=== PATIENT | male | born 1940 | race African-American/Black ===

== ENCOUNTER → 2020-06-29 | Day surgery (SDC) | payer MEDICARE ==
[2020-06-27 15:43] LABS: BASOPHILS % 0.3 % (0.0-1.0); EOSINOPHILS # (AUTO) 0.1 (0.0-0.4); HEMATOCRIT 34.2 % (38.2-49.6); HEMOGLOBIN 11.7 g/dL (14.0-18.0); LYMPHOCYTES # (AUTO) 1.4 (1.0-3.2); LYMPHOCYTES % 17.3 % (18.0-39.1); MEAN CORPUSCULAR HGB CONC 34.2 g/dL (31-35); MEAN CORPUSCULAR VOLUME 93.4 fL (81-99); MONOCYTES # (AUTO) 0.8 (0.2-0.8); MONOCYTES % 10.5 % (4.4-11.3); NEUTROPHILS # (AUTO) 5.6 (2.1-6.9); NEUTROPHILS % 70.6 % (38.7-80.0); PLATELET COUNT 280 x10e3/uL (140-360); RED BLOOD COUNT 3.66 x10e6/uL (4.3-5.7); RED CELL DISTRIBUTION WIDTH 13.5 % (11.7-14.4)
[2020-06-27 16:03] LABS: ANION GAP 14.2 mmol/L (8-16); CALCIUM 11.1 mg/dL (8.4-10.2); CREATININE, SERUM 1.86 mg/dL (0.72-1.25); POTASSIUM 3.2 mmol/L (3.5-5.1)
[~2020-06-29] MED LIST: ACETAMINOPHEN/CODEINE 300MG - 30MG TAB ONE; ALLOPURINOL300 MG PO; AMLODIPINE BESY10 MG PO; B&O 60MG R/S 60 MG SUPP PR ONE; CEFAZOLIN SOD 1 GM/NS 50ML 50 ML IV ONE; CHLORTHALIDONE25 MG PO; DEXAMETHASONE SOD PHOS INJ 4 MG/ML VIAL ONE; FENTANYL CITRATE/PF 100MCG/2 ML INJ ONE; FLOMAX0.4 MG PO; GLYCOPYRROLATE INJ 0.2 MG/ML VIAL ONE; INDIGOTINDISULFONATE SODIUM 8 MG/ML AMP IJ ONE; IOPAMIDOL 300MG/ML 50ML INFUS..BTL IV ONE; LIDOCAINE HCL 2% LOCAL INJ 5 ML SDV VIAL INJ ONE; LYRICA150 MG PO; MIDAZOLAM HCL 2 MG/2 ML VIAL ONE; MORPHINE SULFATE INJ 4 MG/ML INJ 1ML ONE; NEOSTIGMINE 1 MG/ML 10ML VIAL ONE; ONDANSETRON HCL INJ 2MG/ML 2ML 2 MG/ML VIAL ONE; PRAVACHOL40 MG PO; PROPOFOL IV EMULSION 10 MG/ML 20 ML VIAL ONE; ROCURONIUM BROMIDE 10 MG/ML 5ML VIAL IV ONE; SEVOFLURANE INHAL SOLN 250 ML PEN BTL ONE
[2020-06-29 16:20] VITALS: BP 139/92
== END | disposition home or self-care (01) ==
LOC: OR 11:22 → EDBD 14:00
PROVIDERS: ATTEND Urology
DX: C67.2 Malignant neoplasm of lateral wall of bladder (principal); N35.912 Unspecified bulbous urethral stricture, male; N20.0 Calculus of kidney; I10 Essential (primary) hypertension; Z01.810 Encounter for preprocedural cardiovascular examination; Z01.812 Encounter for preprocedural laboratory examination; Z01.818 Encounter for other preprocedural examination; Z20.822 Contact with and (suspected) exposure to COVID-19
CPT/HCPCS: 36415; 52235; 71046; 74420; 80048; 85025; 88307; 93005; C1758 ×2; J0690; J1100; J2001; J2250; J2270; J2405; J2704; J2710; J3010; Q9967; U0002; 88305

== ENCOUNTER 2020-07-06 11:49 | Inpatient (IN) | payer MEDICARE ==
[~2020-07-06] VITALS: Ht 175.3 cm; Wt 82.6 kg
[~2020-07-06 11:49] MED LIST changes: -ACETAMINOPHEN/CODEINE 300MG - 30MG TAB ONE; -B&O 60MG R/S 60 MG SUPP PR ONE; -CEFAZOLIN SOD 1 GM/NS 50ML 50 ML IV ONE; -DEXAMETHASONE SOD PHOS INJ 4 MG/ML VIAL ONE; -FENTANYL CITRATE/PF 100MCG/2 ML INJ ONE; -GLYCOPYRROLATE INJ 0.2 MG/ML VIAL ONE; -INDIGOTINDISULFONATE SODIUM 8 MG/ML AMP IJ ONE; -IOPAMIDOL 300MG/ML 50ML INFUS..BTL IV ONE; -LIDOCAINE HCL 2% LOCAL INJ 5 ML SDV VIAL INJ ONE; -MIDAZOLAM HCL 2 MG/2 ML VIAL ONE; -MORPHINE SULFATE INJ 4 MG/ML INJ 1ML ONE; -NEOSTIGMINE 1 MG/ML 10ML VIAL ONE; -ONDANSETRON HCL INJ 2MG/ML 2ML 2 MG/ML VIAL ONE; -PROPOFOL IV EMULSION 10 MG/ML 20 ML VIAL ONE; -ROCURONIUM BROMIDE 10 MG/ML 5ML VIAL IV ONE; -SEVOFLURANE INHAL SOLN 250 ML PEN BTL ONE
[2020-07-06 13:56] LABS: BASOPHILS % 0.2 % (0.0-1.0); HEMATOCRIT 28.2 % (38.2-49.6); HEMOGLOBIN 10.2 g/dL (14.0-18.0); LYMPHOCYTES # (AUTO) 0.9 (1.0-3.2); MEAN CORPUSCULAR HEMOGLOBIN 31.9 pg (28-32); MEAN CORPUSCULAR HGB CONC 36.2 g/dL (31-35); MEAN CORPUSCULAR VOLUME 88.1 fL (81-99); MONOCYTES # (AUTO) 0.8 (0.2-0.8); MONOCYTES % 10.3 % (4.4-11.3); NEUTROPHILS # (AUTO) 6.4 (2.1-6.9); NEUTROPHILS % 77.8 % (38.7-80.0); PLATELET COUNT 354 x10e3/uL (140-360)
[2020-07-06 14:09] LABS: INR 0.97; PROTHROMBIN TIME 13.5 seconds (11.9-14.5)
[2020-07-06 14:10] LABS: PARTIAL THROMBOPLASTIN TIME 30.3 seconds (23.8-35.5)
[2020-07-06 14:16] LABS: ALBUMIN 4.2 g/dL (3.5-5.0); ALBUMIN/GLOBULIN RATIO 1.4 (0.8-2.0); ANION GAP 17.7 mmol/L (8-16); CALCIUM 10.6 mg/dL (8.4-10.2); CREATININE, SERUM 1.48 mg/dL (0.72-1.25)
[2020-07-06 14:20] LABS: POTASSIUM 2.7 mmol/L (3.5-5.1)
[2020-07-06] MEDS ORDERED: POTASSIUM CHLORIDE 20 MEQ TAB CR PO STA (16:52)
[2020-07-06] MEDS ORDERED: MORPHINE SULFATE INJ 2 MG/ML SYR IV PRN (17:00)
[2020-07-06] MEDS ORDERED: CEFTRIAXONE SOD 1 GM/50 ML BAG IV SCH (17:00)
[2020-07-06] MEDS: CEFTRIAXONE SOD 1 GM in SODIUM CHLORIDE 0.9% 50ML 50 ML IV SCH (17:15)
[2020-07-06] MEDS: SODIUM CHLORIDE 0.9% 1000ML 1,000 ML IV SCH (17:15)
[2020-07-06] MEDS: POTASSIUM CHLORIDE 10MEQ/100ML 100 ML IV SCH ×2 (17:15→19:25)
[2020-07-06] MEDS ORDERED: MORPHINE SULFATE INJ 4 MG/ML INJ 1ML IV PRN (17:15)
[2020-07-06] MEDS: ONDANSETRON HCL INJ 2MG/ML 2ML 2 MG/ML VIAL IV PRN (17:58)
[2020-07-06] MEDS ORDERED: HYDRALAZINE HCL 20 MG/ML VIAL IV PRN (18:15)
[2020-07-06 19:00] VITALS: BP 115/87
[2020-07-06 20:37] VITALS: BP 119/75
[2020-07-06] MEDS: MORPHINE SULFATE INJ 2 MG/ML SYR IV PRN (20:37)
[2020-07-06] MEDS: SIMVASTATIN 40 MG TAB PO SCH (21:00)
[2020-07-06] MEDS: MELATONIN 5 MG TABLET PO SCH (21:00)
[2020-07-06] MEDS ORDERED: B&O 60MG R/S 60 MG SUPP PR STA (21:20)
[2020-07-07] VITALS (8 sets, daily range): BP systolic 101–122; BP diastolic 63–87
[2020-07-07] MEDS: MORPHINE SULFATE INJ 2 MG/ML SYR IV PRN ×3 (04:57→16:15)
[2020-07-07] MEDS: CEFTRIAXONE SOD 1 GM in SODIUM CHLORIDE 0.9% 50ML 50 ML IV SCH ×2 (05:19→21:00)
[2020-07-07] MEDS: POTASSIUM CHLORIDE 10MEQ/100ML 100 ML IV SCH (06:01)
[2020-07-07 06:02] LABS: BASOPHILS % 0.4 % (0.0-1.0); EOSINOPHILS # (AUTO) 0.1 (0.0-0.4); EOSINOPHILS % 1.3 % (0.0-6.0); HEMATOCRIT 24.2 % (38.2-49.6); HEMOGLOBIN 8.6 g/dL (14.0-18.0); LYMPHOCYTES # (AUTO) 1.1 (1.0-3.2); LYMPHOCYTES % 19.8 % (18.0-39.1); MEAN CORPUSCULAR HEMOGLOBIN 31.5 pg (28-32); MEAN CORPUSCULAR HGB CONC 35.5 g/dL (31-35); MEAN CORPUSCULAR VOLUME 88.6 fL (81-99); MONOCYTES # (AUTO) 0.8 (0.2-0.8); MONOCYTES % 14.3 % (4.4-11.3); NEUTROPHILS # (AUTO) 3.6 (2.1-6.9); NEUTROPHILS % 63.7 % (38.7-80.0); PLATELET COUNT 321 x10e3/uL (140-360); RED BLOOD COUNT 2.73 x10e6/uL (4.3-5.7); RED CELL DISTRIBUTION WIDTH 13.1 % (11.7-14.4)
[2020-07-07] MEDS: SODIUM CHLORIDE 0.9% 1000ML 1,000 ML IV SCH (06:20)
[2020-07-07 06:26] LABS: ALANINE AMINOTRANSFERASE 19 IU/L (0-55); ALBUMIN 3.3 g/dL (3.5-5.0); ALBUMIN/GLOBULIN RATIO 1.3 (0.8-2.0); ALKALINE PHOSPHATASE 58 IU/L (40-150); ANION GAP 14.1 mmol/L (8-16); BLOOD UREA NITROGEN 19 mg/dL (7-26); BUN/CREATININE RATIO 16 (6-25); CALCIUM 9.2 mg/dL (8.4-10.2); CARBON DIOXIDE 23 mmol/L (22-29); CHLORIDE 92 mmol/L (98-107); CREATININE, SERUM 1.18 mg/dL (0.72-1.25); EST GLOMERULAR FILTRATION RATE > 60 ML/MIN (60-); GLUCOSE 90 mg/dL (74-118); POTASSIUM 3.1 mmol/L (3.5-5.1); SODIUM 126 mmol/L (136-145)
[2020-07-07] MEDS ORDERED: CHLORTHALIDONE 25 MG TAB PO SCH (09:00)
[2020-07-07] MEDS: AMLODIPINE BESYLATE 10 MG TAB PO SCH (09:09)
[2020-07-07] MEDS: ALLOPURINOL 300 MG TAB PO SCH (09:09)
[2020-07-07] MEDS: PREGABALIN 75 MG CAP PO SCH (09:10)
[2020-07-07] MEDS: FAMOTIDINE 20 MG TAB PO SCH ×2 (09:10→16:15)
[2020-07-07] MEDS: TAMSULOSIN HCL 0.4 MG CAP PO SCH (09:10)
[2020-07-07] MEDS ORDERED: B&O 60MG R/S 60 MG SUPP PR ONE (09:30)
[2020-07-07] MEDS ORDERED: POTASSIUM CHLORIDE 10MEQ EA PO ONE (10:30)
[2020-07-07] MEDS ORDERED: POTASSIUM CHLORIDE 20MEQ/100ML 200 ML IV ONE (12:55)
[2020-07-07 17:45] LABS: ANION GAP 16.6 mmol/L (8-16); BLOOD UREA NITROGEN 18 mg/dL (7-26); BUN/CREATININE RATIO 15 (6-25); CALCIUM 9.1 mg/dL (8.4-10.2); CARBON DIOXIDE 21 mmol/L (22-29); CHLORIDE 100 mmol/L (98-107); EST GLOMERULAR FILTRATION RATE > 60 ML/MIN (60-); GLUCOSE 81 mg/dL (74-118); POTASSIUM 3.6 mmol/L (3.5-5.1); SODIUM 134 mmol/L (136-145)
[2020-07-07] MEDS ORDERED: DEXTROSE 5% 1,000 ML IV SCH (18:30)
[2020-07-07] MEDS: SIMVASTATIN 40 MG TAB PO SCH (21:00)
[2020-07-07] MEDS: MELATONIN 5 MG TABLET PO SCH (21:00)
[2020-07-08] VITALS (8 sets, daily range): BP systolic 104–122; BP diastolic 65–78
[2020-07-08 00:08] LABS: BLOOD UREA NITROGEN 17 mg/dL (7-26); BUN/CREATININE RATIO 13 (6-25); CALCIUM 9.1 mg/dL (8.4-10.2); CARBON DIOXIDE 18 mmol/L (22-29); CHLORIDE 104 mmol/L (98-107); CREATININE, SERUM 1.28 mg/dL (0.72-1.25); EST GLOMERULAR FILTRATION RATE > 60 ML/MIN (60-); GLUCOSE 73 mg/dL (74-118); SODIUM 135 mmol/L (136-145)
[2020-07-08] MEDS: B&O 60MG R/S 60 MG SUPP PR PRN ×3 (02:54→20:43)
[2020-07-08 05:55] LABS: BASOPHILS % 0.6 % (0.0-1.0); EOSINOPHILS # (AUTO) 0.1 (0.0-0.4); EOSINOPHILS % 1.9 % (0.0-6.0); HEMATOCRIT 25.4 % (38.2-49.6); HEMOGLOBIN 8.7 g/dL (14.0-18.0); LYMPHOCYTES % 19.9 % (18.0-39.1); MEAN CORPUSCULAR HEMOGLOBIN 31.9 pg (28-32); MEAN CORPUSCULAR HGB CONC 34.3 g/dL (31-35); MONOCYTES # (AUTO) 0.6 (0.2-0.8); MONOCYTES % 11.4 % (4.4-11.3); NEUTROPHILS # (AUTO) 3.4 (2.1-6.9); NEUTROPHILS % 65.6 % (38.7-80.0); PLATELET COUNT 316 x10e3/uL (140-360); RED BLOOD COUNT 2.73 x10e6/uL (4.3-5.7); RED CELL DISTRIBUTION WIDTH 13.6 % (11.7-14.4)
[2020-07-08 06:19] LABS: ANION GAP 13.9 mmol/L (8-16); BLOOD UREA NITROGEN 18 mg/dL (7-26); BUN/CREATININE RATIO 14 (6-25); CALCIUM 8.9 mg/dL (8.4-10.2); CARBON DIOXIDE 20 mmol/L (22-29); CHLORIDE 104 mmol/L (98-107); CREATININE, SERUM 1.27 mg/dL (0.72-1.25); EST GLOMERULAR FILTRATION RATE > 60 ML/MIN (60-); GLUCOSE 66 mg/dL (74-118); MAGNESIUM 1.4 MG/DL (1.3-2.1); POTASSIUM 3.9 mmol/L (3.5-5.1); SODIUM 134 mmol/L (136-145)
[2020-07-08] MEDS: CEFTRIAXONE SOD 1 GM in SODIUM CHLORIDE 0.9% 50ML 50 ML IV SCH ×2 (06:55→17:08)
[2020-07-08] MEDS: PREGABALIN 75 MG CAP PO SCH (08:11)
[2020-07-08] MEDS: TAMSULOSIN HCL 0.4 MG CAP PO SCH (08:11)
[2020-07-08] MEDS: FAMOTIDINE 20 MG TAB PO SCH ×2 (08:11→16:30)
[2020-07-08] MEDS: AMLODIPINE BESYLATE 10 MG TAB PO SCH (08:12)
[2020-07-08] MEDS: ALLOPURINOL 300 MG TAB PO SCH (08:13)
[2020-07-08] MEDS: ONDANSETRON HCL INJ 2MG/ML 2ML 2 MG/ML VIAL IV PRN ×2 (08:21→16:00)
[2020-07-08] MEDS: MORPHINE SULFATE INJ 2 MG/ML SYR IV PRN ×2 (08:22→16:00)
[2020-07-08] MEDS: TRAMADOL HCL 50 MG TAB PO PRN ×2 (09:56→17:09)
[2020-07-08] MEDS: MELATONIN 5 MG TABLET PO SCH (22:00)
[2020-07-08] MEDS: SIMVASTATIN 40 MG TAB PO SCH (22:00)
[2020-07-09] VITALS (8 sets, daily range): BP systolic 100–111; BP diastolic 68–91
[2020-07-09] MEDS: MORPHINE SULFATE INJ 2 MG/ML SYR IV PRN ×4 (02:43→20:25)
[2020-07-09] MEDS: ONDANSETRON HCL INJ 2MG/ML 2ML 2 MG/ML VIAL IV PRN (02:43)
[2020-07-09] MEDS: CEFTRIAXONE SOD 1 GM in SODIUM CHLORIDE 0.9% 50ML 50 ML IV SCH ×2 (05:26→17:21)
[2020-07-09 05:46] LABS: BASOPHILS % 0.6 % (0.0-1.0); EOSINOPHILS # (AUTO) 0.1 (0.0-0.4); EOSINOPHILS % 2.1 % (0.0-6.0); HEMATOCRIT 25.2 % (38.2-49.6); HEMOGLOBIN 8.8 g/dL (14.0-18.0); LYMPHOCYTES # (AUTO) 1.2 (1.0-3.2); LYMPHOCYTES % 24.3 % (18.0-39.1); MEAN CORPUSCULAR HEMOGLOBIN 32.5 pg (28-32); MEAN CORPUSCULAR HGB CONC 34.9 g/dL (31-35); MONOCYTES # (AUTO) 0.6 (0.2-0.8); MONOCYTES % 13.1 % (4.4-11.3); NEUTROPHILS # (AUTO) 2.9 (2.1-6.9); NEUTROPHILS % 59.5 % (38.7-80.0); PLATELET COUNT 304 x10e3/uL (140-360); RED BLOOD COUNT 2.71 x10e6/uL (4.3-5.7); RED CELL DISTRIBUTION WIDTH 13.4 % (11.7-14.4)
[2020-07-09 06:05] LABS: ALBUMIN 3.4 g/dL (3.5-5.0); ALBUMIN/GLOBULIN RATIO 1.3 (0.8-2.0); ANION GAP 12.6 mmol/L (8-16); CALCIUM 8.8 mg/dL (8.4-10.2); CREATININE, SERUM 1.42 mg/dL (0.72-1.25); MAGNESIUM 1.5 MG/DL (1.3-2.1); POTASSIUM 3.6 mmol/L (3.5-5.1)
[2020-07-09] MEDS: B&O 60MG R/S 60 MG SUPP PR PRN ×2 (06:18→16:00)
[2020-07-09] MEDS: FAMOTIDINE 20 MG TAB PO SCH ×2 (09:03→17:21)
[2020-07-09] MEDS: PREGABALIN 75 MG CAP PO SCH (09:03)
[2020-07-09] MEDS: TAMSULOSIN HCL 0.4 MG CAP PO SCH (09:03)
[2020-07-09] MEDS: ALLOPURINOL 300 MG TAB PO SCH (09:04)
[2020-07-09] MEDS: AMLODIPINE BESYLATE 10 MG TAB PO SCH (09:04)
[2020-07-09] MEDS: MELATONIN 5 MG TABLET PO SCH (21:27)
[2020-07-09] MEDS: SIMVASTATIN 40 MG TAB PO SCH (21:27)
[2020-07-10] VITALS (8 sets, daily range): BP systolic 108–152; BP diastolic 63–85
[2020-07-10] MEDS: B&O 60MG R/S 60 MG SUPP PR PRN ×3 (04:35→20:50)
[2020-07-10] MEDS: CEFTRIAXONE SOD 1 GM in SODIUM CHLORIDE 0.9% 50ML 50 ML IV SCH ×2 (05:24→17:37)
[2020-07-10] MEDS: FAMOTIDINE 20 MG TAB PO SCH ×2 (07:56→15:54)
[2020-07-10] MEDS: TAMSULOSIN HCL 0.4 MG CAP PO SCH (07:56)
[2020-07-10] MEDS: PREGABALIN 75 MG CAP PO SCH (07:56)
[2020-07-10] MEDS: AMLODIPINE BESYLATE 10 MG TAB PO SCH (07:56)
[2020-07-10] MEDS: ALLOPURINOL 300 MG TAB PO SCH (07:58)
[2020-07-10] MEDS: ACETAMINOPHEN 325 MG TAB PO PRN (07:59)
[2020-07-10] MEDS: TRAMADOL HCL 50 MG TAB PO PRN (12:49)
[2020-07-10] MEDS: MORPHINE SULFATE INJ 2 MG/ML SYR IV PRN (15:54)
[2020-07-10] MEDS: SIMVASTATIN 40 MG TAB PO SCH (21:17)
[2020-07-10] MEDS: MELATONIN 5 MG TABLET PO SCH (21:17)
[2020-07-11] VITALS (8 sets, daily range): BP systolic 118–129; BP diastolic 73–83
[2020-07-11] MEDS: MORPHINE SULFATE INJ 2 MG/ML SYR IV PRN ×2 (00:05→16:20)
[2020-07-11 05:24] LABS: BASOPHILS % 0.4 % (0.0-1.0); EOSINOPHILS # (AUTO) 0.1 (0.0-0.4); EOSINOPHILS % 1.6 % (0.0-6.0); HEMATOCRIT 27.7 % (38.2-49.6); HEMOGLOBIN 9.6 g/dL (14.0-18.0); LYMPHOCYTES # (AUTO) 1.3 (1.0-3.2); LYMPHOCYTES % 19.3 % (18.0-39.1); MEAN CORPUSCULAR HEMOGLOBIN 32.3 pg (28-32); MEAN CORPUSCULAR HGB CONC 34.7 g/dL (31-35); MEAN CORPUSCULAR VOLUME 93.3 fL (81-99); MONOCYTES # (AUTO) 0.7 (0.2-0.8); MONOCYTES % 9.7 % (4.4-11.3); NEUTROPHILS # (AUTO) 4.6 (2.1-6.9); NEUTROPHILS % 68.4 % (38.7-80.0); PLATELET COUNT 364 x10e3/uL (140-360); RED BLOOD COUNT 2.97 x10e6/uL (4.3-5.7); RED CELL DISTRIBUTION WIDTH 13.6 % (11.7-14.4)
[2020-07-11] MEDS: CEFTRIAXONE SOD 1 GM in SODIUM CHLORIDE 0.9% 50ML 50 ML IV SCH (05:39)
[2020-07-11 05:58] LABS: ALBUMIN 3.7 g/dL (3.5-5.0); ALBUMIN/GLOBULIN RATIO 1.3 (0.8-2.0); ANION GAP 14.6 mmol/L (8-16); CALCIUM 9.7 mg/dL (8.4-10.2); CREATININE, SERUM 1.4 mg/dL (0.72-1.25); POTASSIUM 3.6 mmol/L (3.5-5.1)
[2020-07-11] MEDS: PREGABALIN 75 MG CAP PO SCH (10:12)
[2020-07-11] MEDS: AMLODIPINE BESYLATE 10 MG TAB PO SCH (10:12)
[2020-07-11] MEDS: FAMOTIDINE 20 MG TAB PO SCH ×2 (10:12→16:47)
[2020-07-11] MEDS: ALLOPURINOL 300 MG TAB PO SCH (10:12)
[2020-07-11] MEDS: TAMSULOSIN HCL 0.4 MG CAP PO SCH (10:12)
[2020-07-11] MEDS: ACETAMINOPHEN 325 MG TAB PO PRN ×2 (10:20→16:20)
[2020-07-11] MEDS: SIMVASTATIN 40 MG TAB PO SCH (20:50)
[2020-07-11] MEDS: MELATONIN 5 MG TABLET PO SCH (22:59)
[2020-07-12] VITALS (7 sets, daily range): BP systolic 122–139; BP diastolic 71–86
[2020-07-12] MEDS: MORPHINE SULFATE INJ 2 MG/ML SYR IV PRN ×3 (00:11→17:01)
[2020-07-12] MEDS: B&O 60MG R/S 60 MG SUPP PR PRN ×2 (00:20→17:05)
[2020-07-12] MEDS: TRAMADOL HCL 50 MG TAB PO PRN ×3 (02:50→22:40)
[2020-07-12 05:16] LABS: BASOPHILS # (AUTO) 0.1 (0.0-0.1); BASOPHILS % 0.6 % (0.0-1.0); EOSINOPHILS # (AUTO) 0.2 (0.0-0.4); EOSINOPHILS % 2.1 % (0.0-6.0); HEMATOCRIT 29.3 % (38.2-49.6); HEMOGLOBIN 10.1 g/dL (14.0-18.0); LYMPHOCYTES # (AUTO) 1.5 (1.0-3.2); LYMPHOCYTES % 17.7 % (18.0-39.1); MEAN CORPUSCULAR HEMOGLOBIN 31.7 pg (28-32); MEAN CORPUSCULAR HGB CONC 34.5 g/dL (31-35); MEAN CORPUSCULAR VOLUME 91.8 fL (81-99); MONOCYTES # (AUTO) 0.7 (0.2-0.8); MONOCYTES % 8.6 % (4.4-11.3); NEUTROPHILS # (AUTO) 6.1 (2.1-6.9); NEUTROPHILS % 70.7 % (38.7-80.0); PLATELET COUNT 395 x10e3/uL (140-360); RED BLOOD COUNT 3.19 x10e6/uL (4.3-5.7); RED CELL DISTRIBUTION WIDTH 13.4 % (11.7-14.4)
[2020-07-12 05:56] LABS: ANION GAP 15.2 mmol/L (8-16); BLOOD UREA NITROGEN 20 mg/dL (7-26); BUN/CREATININE RATIO 15 (6-25); CALCIUM 10.5 mg/dL (8.4-10.2); CARBON DIOXIDE 23 mmol/L (22-29); CHLORIDE 103 mmol/L (98-107); CREATININE, SERUM 1.34 mg/dL (0.72-1.25); EST GLOMERULAR FILTRATION RATE > 60 ML/MIN (60-); GLUCOSE 140 mg/dL (74-118); POTASSIUM 4.2 mmol/L (3.5-5.1); SODIUM 137 mmol/L (136-145)
[2020-07-12] MEDS: AMLODIPINE BESYLATE 10 MG TAB PO SCH (09:31)
[2020-07-12] MEDS: TAMSULOSIN HCL 0.4 MG CAP PO SCH (09:31)
[2020-07-12] MEDS: PREGABALIN 75 MG CAP PO SCH (09:31)
[2020-07-12] MEDS: FAMOTIDINE 20 MG TAB PO SCH ×2 (09:31→16:59)
[2020-07-12] MEDS: ALLOPURINOL 300 MG TAB PO SCH (09:31)
[2020-07-12] MEDS: LORAZEPAM 0.5 MG TAB PO PRN (20:44)
[2020-07-12] MEDS: SIMVASTATIN 40 MG TAB PO SCH (20:44)
[2020-07-12] MEDS: MELATONIN 5 MG TABLET PO SCH (20:44)
[2020-07-13] VITALS (7 sets, daily range): BP systolic 114–150; BP diastolic 73–86
[2020-07-13] MEDS: B&O 60MG R/S 60 MG SUPP PR PRN (00:18)
[2020-07-13] MEDS: MORPHINE SULFATE INJ 2 MG/ML SYR IV PRN ×2 (05:15→14:40)
[2020-07-13] MEDS: LORAZEPAM 0.5 MG TAB PO PRN (05:15)
[2020-07-13 06:18] LABS: BASOPHILS # (AUTO) 0.1 (0.0-0.1); BASOPHILS % 0.5 % (0.0-1.0); EOSINOPHILS # (AUTO) 0.2 (0.0-0.4); EOSINOPHILS % 1.8 % (0.0-6.0); HEMATOCRIT 30.3 % (38.2-49.6); HEMOGLOBIN 10.2 g/dL (14.0-18.0); LYMPHOCYTES # (AUTO) 1.6 (1.0-3.2); LYMPHOCYTES % 17.3 % (18.0-39.1); MEAN CORPUSCULAR HEMOGLOBIN 31.5 pg (28-32); MEAN CORPUSCULAR HGB CONC 33.7 g/dL (31-35); MEAN CORPUSCULAR VOLUME 93.5 fL (81-99); MONOCYTES # (AUTO) 0.8 (0.2-0.8); MONOCYTES % 8.2 % (4.4-11.3); NEUTROPHILS # (AUTO) 6.5 (2.1-6.9); NEUTROPHILS % 71.9 % (38.7-80.0); PLATELET COUNT 409 x10e3/uL (140-360); RED BLOOD COUNT 3.24 x10e6/uL (4.3-5.7); RED CELL DISTRIBUTION WIDTH 13.4 % (11.7-14.4)
[2020-07-13 06:55] LABS: ANION GAP 17.3 mmol/L (8-16); CALCIUM 10.9 mg/dL (8.4-10.2); CREATININE, SERUM 1.43 mg/dL (0.72-1.25); POTASSIUM 4.3 mmol/L (3.5-5.1)
[2020-07-13] MEDS: TAMSULOSIN HCL 0.4 MG CAP PO SCH (08:31)
[2020-07-13] MEDS: PREGABALIN 75 MG CAP PO SCH (08:31)
[2020-07-13] MEDS: FAMOTIDINE 20 MG TAB PO SCH ×2 (08:31→16:30)
[2020-07-13] MEDS: ALLOPURINOL 300 MG TAB PO SCH (08:32)
[2020-07-13] MEDS: AMLODIPINE BESYLATE 10 MG TAB PO SCH (08:32)
[2020-07-13] MEDS ORDERED: IOPAMIDOL 300MG/ML 50ML INFUS..BTL IV ONE (11:04)
[2020-07-13] MEDS ORDERED: B&O 60MG R/S 60 MG SUPP PR ONE (11:04)
[2020-07-13] MEDS ORDERED: CEFAZOLIN SOD 1 GM VIAL ONE (13:37)
[2020-07-13] MEDS ORDERED: DEXAMETHASONE SOD PHOS INJ 4 MG/ML VIAL ONE (13:37)
[2020-07-13] MEDS ORDERED: DESFLURANE 240 ML BTL INH ONE (13:37)
[2020-07-13] MEDS ORDERED: PROPOFOL IV EMULSION 10 MG/ML 20 ML VIAL ONE (13:37)
[2020-07-13] MEDS ORDERED: ONDANSETRON HCL INJ 2MG/ML 2ML 2 MG/ML VIAL ONE (13:37)
[2020-07-13] MEDS ORDERED: POVIDONE IODINE 0.05% 0.05 % ML PO ONE (13:37)
[2020-07-13] MEDS ORDERED: LIDOCAINE HCL 2% LOCAL INJ 5 ML SDV VIAL INJ ONE (13:37)
[2020-07-13] MEDS ORDERED: EPHEDRINE SULFATE INJ 50 MG/ML VIAL ONE (13:37)
[2020-07-13] MEDS: MELATONIN 5 MG TABLET PO SCH (20:35)
[2020-07-13] MEDS: SIMVASTATIN 40 MG TAB PO SCH (20:35)
[2020-07-14] VITALS: BP 109/72
[2020-07-14] MEDS: ACETAMINOPHEN 325 MG TAB PO PRN (00:29)
[2020-07-14 04:00] VITALS: BP 108/68
[2020-07-14 05:11] LABS: BASOPHILS % 0.2 % (0.0-1.0); HEMATOCRIT 27.6 % (38.2-49.6); HEMOGLOBIN 9.4 g/dL (14.0-18.0); LYMPHOCYTES # (AUTO) 0.6 (1.0-3.2); LYMPHOCYTES % 9.6 % (18.0-39.1); MEAN CORPUSCULAR HEMOGLOBIN 31.9 pg (28-32); MEAN CORPUSCULAR HGB CONC 34.1 g/dL (31-35); MEAN CORPUSCULAR VOLUME 93.6 fL (81-99); MONOCYTES # (AUTO) 0.4 (0.2-0.8); NEUTROPHILS # (AUTO) 5.1 (2.1-6.9); NEUTROPHILS % 83.9 % (38.7-80.0); PLATELET COUNT 333 x10e3/uL (140-360); RED BLOOD COUNT 2.95 x10e6/uL (4.3-5.7); RED CELL DISTRIBUTION WIDTH 13.2 % (11.7-14.4)
[2020-07-14 05:41] LABS: ANION GAP 16.1 mmol/L (8-16); CALCIUM 9.4 mg/dL (8.4-10.2); CREATININE, SERUM 1.46 mg/dL (0.72-1.25); POTASSIUM 4.1 mmol/L (3.5-5.1)
[2020-07-14 07:55] VITALS: BP 124/82
[2020-07-14] MEDS ORDERED: ONDANSETRON HCL 4 MG ORAL DISINTEGRATING TAB PO PRN (08:15)
[2020-07-14 08:47] VITALS: BP 124/82
[2020-07-14] MEDS ORDERED: AZO STANDARD95 MG PO (11:11)
[2020-07-14] MEDS: ALLOPURINOL 300 MG TAB PO SCH (11:22)
[2020-07-14] MEDS: AMLODIPINE BESYLATE 10 MG TAB PO SCH (11:22)
[2020-07-14] MEDS: FAMOTIDINE 20 MG TAB PO SCH (11:22)
[2020-07-14] MEDS: TAMSULOSIN HCL 0.4 MG CAP PO SCH (11:22)
[2020-07-14 11:46] VITALS: BP 105/72
== END 2020-07-14 13:00 | disposition home or self-care (01) | DRG 920 ==
LOC: ER 12:08 → ERHOLD 17:00 → MED/SURG3 18:41 → MED/SURG 07-07 16:05
PROVIDERS: ADMIT Internal Medicine; ATTEND Internal Medicine
PROC: 0TCB8ZZ Extirpation of Matter from Bladder, Via Natural or Artificial Opening Endoscopic (ICD-10-PCS; 2020-07-13)
PROC: BT141ZZ Fluoroscopy of Kidneys, Ureters and Bladder using Low Osmolar Contrast (ICD-10-PCS; 2020-07-13)
PROC: BT101ZZ Fluoroscopy of Bladder using Low Osmolar Contrast (ICD-10-PCS; principal; 2020-07-13 10:58)
DX: N99.821 Postprocedural hemorrhage of a genitourinary system organ or structure following other procedure (principal); N17.9 Acute kidney failure, unspecified; E87.1 Hypo-osmolality and hyponatremia; N13.8 Other obstructive and reflux uropathy; C67.9 Malignant neoplasm of bladder, unspecified; R31.9 Hematuria, unspecified; E78.5 Hyperlipidemia, unspecified; M10.9 Gout, unspecified; N40.1 Benign prostatic hyperplasia with lower urinary tract symptoms; N32.3 Diverticulum of bladder; G62.9 Polyneuropathy, unspecified; Z83.3 Family history of diabetes mellitus; Z82.49 Family history of ischemic heart disease and other diseases of the circulatory system; E87.6 Hypokalemia; N99.0 Postprocedural (acute) (chronic) kidney failure; N18.30 Chronic kidney disease, stage 3 unspecified; Z20.822 Contact with and (suspected) exposure to COVID-19; I12.9 Hypertensive chronic kidney disease with stage 1 through stage 4 chronic kidney disease, or unspecified chronic kidney disease
CPT/HCPCS: 36415; 51703; 74420; 80048; 80053; 83735; 85025; 85610; 85730; 86850; 86900; 87086; 99284; J0690; J0696; J1100; J2001; J2270; J2405; J3480; J7030; J7070; U0002

== ENCOUNTER → 2020-09-22 | Day surgery (SDC) | payer MEDICARE ==
[2020-09-20 14:20] LABS: BASOPHILS % 0.2 % (0.0-1.0); EOSINOPHILS % 0.7 % (0.0-6.0); HEMATOCRIT 28.8 % (38.2-49.6); HEMOGLOBIN 9.7 g/dL (14.0-18.0); LYMPHOCYTES # (AUTO) 1.3 (1.0-3.2); LYMPHOCYTES % 22.6 % (18.0-39.1); MEAN CORPUSCULAR HEMOGLOBIN 29.8 pg (28-32); MEAN CORPUSCULAR HGB CONC 33.7 g/dL (31-35); MEAN CORPUSCULAR VOLUME 88.6 fL (81-99); MONOCYTES # (AUTO) 0.5 (0.2-0.8); MONOCYTES % 8.4 % (4.4-11.3); NEUTROPHILS # (AUTO) 3.9 (2.1-6.9); NEUTROPHILS % 67.9 % (38.7-80.0); PLATELET COUNT 296 x10e3/uL (140-360); RED BLOOD COUNT 3.25 x10e6/uL (4.3-5.7); RED CELL DISTRIBUTION WIDTH 15.2 % (11.7-14.4)
[2020-09-20 14:37] LABS: ANION GAP 17.2 mmol/L (8-16); CALCIUM 12.3 mg/dL (8.4-10.2); CREATININE, SERUM 1.92 mg/dL (0.72-1.25); POTASSIUM 3.2 mmol/L (3.5-5.1)
[~2020-09-22] MED LIST changes: +AZO STANDARD95 MG PO; +B&O 60MG R/S 60 MG SUPP PR ONE; +DEXAMETHASONE SOD PHOS INJ 4 MG/ML VIAL ONE; +FENTANYL CITRATE/PF 100MCG/2 ML INJ ONE; +IOPAMIDOL 300MG/ML 50ML INFUS..BTL IV ONE; +LIDOCAINE HCL 2% LOCAL INJ 5 ML SDV VIAL INJ ONE; +ONDANSETRON HCL INJ 2MG/ML 2ML 2 MG/ML VIAL ONE; +PHENYLEPHRINE HCL 1% 10 MG/ML VIAL ONE; +POVIDONE IODINE 0.05% 0.05 % ML PO ONE; +PROPOFOL IV EMULSION 10 MG/ML 20 ML VIAL ONE; +SEVOFLURANE INHAL SOLN 250 ML PEN BTL ONE; +SODIUM CHLORIDE 0.9% 50ML 50 ML ONE; +THORAZINE25 MG PO
[2020-09-22 13:55] VITALS: BP 135/80
== END | disposition home or self-care (01) ==
LOC: OR 10:45
PROVIDERS: ATTEND Urology
DX: C67.9 Malignant neoplasm of bladder, unspecified (principal); I12.9 Hypertensive chronic kidney disease with stage 1 through stage 4 chronic kidney disease, or unspecified chronic kidney disease; N18.9 Chronic kidney disease, unspecified; Z01.812 Encounter for preprocedural laboratory examination
CPT/HCPCS: 36415; 52224; 74420; 80048; 85025; 88305; C1758; J0690; J1100; J2001; J2370; J2405; J2704; J3010; Q9967

== ENCOUNTER 2020-09-24 13:27 | Emergency (ER) | payer MEDICARE ==
[~2020-09-24] VITALS: Ht 175.3 cm; Wt 65.8 kg
[~2020-09-24 13:27] MED LIST changes: -B&O 60MG R/S 60 MG SUPP PR ONE; -DEXAMETHASONE SOD PHOS INJ 4 MG/ML VIAL ONE; -FENTANYL CITRATE/PF 100MCG/2 ML INJ ONE; -IOPAMIDOL 300MG/ML 50ML INFUS..BTL IV ONE; -LIDOCAINE HCL 2% LOCAL INJ 5 ML SDV VIAL INJ ONE; -ONDANSETRON HCL INJ 2MG/ML 2ML 2 MG/ML VIAL ONE; -PHENYLEPHRINE HCL 1% 10 MG/ML VIAL ONE; -POVIDONE IODINE 0.05% 0.05 % ML PO ONE; -PROPOFOL IV EMULSION 10 MG/ML 20 ML VIAL ONE; -SEVOFLURANE INHAL SOLN 250 ML PEN BTL ONE; -SODIUM CHLORIDE 0.9% 50ML 50 ML ONE; -THORAZINE25 MG PO
[2020-09-24] MEDS ORDERED: THORAZINE25 MG PO (15:04)
== END 2020-09-24 15:18 | disposition home or self-care (01) ==
LOC: FSED 13:54
DX: R06.6 Hiccough (principal); I10 Essential (primary) hypertension; E78.5 Hyperlipidemia, unspecified; M54.9 Dorsalgia, unspecified; G89.29 Other chronic pain; Z98.890 Other specified postprocedural states
CPT/HCPCS: 74021; 99283

== ENCOUNTER 2022-02-02 16:37 | Inpatient (IN) | payer MEDICARE ==
[~2022-02-02] VITALS: Ht 170.2 cm; Wt 51.3 kg
[~2022-02-02 16:37] MED LIST changes: +THORAZINE25 MG PO
[2022-02-02 17:55] LABS: BASOPHILS % 0.4 % (0.0-1.0); EOSINOPHILS % 0.2 % (0.0-6.0); HEMATOCRIT 33.1 % (38.2-49.6); HEMOGLOBIN 11.1 g/dL (14.0-18.0); LYMPHOCYTES # (AUTO) 0.8 (1.0-3.2); LYMPHOCYTES % 17.6 % (18.0-39.1); MEAN CORPUSCULAR HEMOGLOBIN 32.3 pg (28-32); MEAN CORPUSCULAR HGB CONC 33.5 g/dL (31-35); MEAN CORPUSCULAR VOLUME 96.2 fL (81-99); MONOCYTES # (AUTO) 0.6 (0.2-0.8); MONOCYTES % 12.7 % (4.4-11.3); NEUTROPHILS # (AUTO) 3.2 (2.1-6.9); NEUTROPHILS % 68.9 % (38.7-80.0); PLATELET COUNT 328 x10e3/uL (140-360); RED BLOOD COUNT 3.44 x10e6/uL (4.3-5.7); RED CELL DISTRIBUTION WIDTH 12.8 % (11.7-14.4)
[2022-02-02 18:16] LABS: ALBUMIN/GLOBULIN RATIO 1.3 (0.8-2.0); ANION GAP 13.2 mmol/L (8-16); CREATININE, SERUM 1.9 mg/dL (0.72-1.25); POTASSIUM 3.2 mmol/L (3.5-5.1)
[2022-02-02 18:17] LABS: CALCIUM 15.4 mg/dL (8.4-10.2)
[2022-02-02] MEDS ORDERED: ONDANSETRON HCL INJ 2MG/ML 2ML 2 MG/ML VIAL IV PRN (19:45)
[2022-02-02] MEDS: SODIUM CHLORIDE 0.9% 1000ML 1,000 ML IV SCH (22:37)
[2022-02-03] MEDS: SODIUM CHLORIDE 0.9% 1000ML 1,000 ML IV SCH ×2 (05:45→09:39)
[2022-02-03 08:30] VITALS: BP 124/78
[2022-02-03 08:44] VITALS: BP 124/78
[2022-02-03 09:13] LABS: BASOPHILS % 0.5 % (0.0-1.0); EOSINOPHILS % 0.2 % (0.0-6.0); HEMATOCRIT 32.2 % (38.2-49.6); HEMOGLOBIN 11.2 g/dL (14.0-18.0); LYMPHOCYTES # (AUTO) 0.7 (1.0-3.2); LYMPHOCYTES % 12.7 % (18.0-39.1); MEAN CORPUSCULAR HEMOGLOBIN 32.3 pg (28-32); MEAN CORPUSCULAR HGB CONC 34.8 g/dL (31-35); MEAN CORPUSCULAR VOLUME 92.8 fL (81-99); MONOCYTES # (AUTO) 0.6 (0.2-0.8); MONOCYTES % 9.9 % (4.4-11.3); NEUTROPHILS # (AUTO) 4.2 (2.1-6.9); NEUTROPHILS % 76.3 % (38.7-80.0); PLATELET COUNT 284 x10e3/uL (140-360); RED BLOOD COUNT 3.47 x10e6/uL (4.3-5.7); RED CELL DISTRIBUTION WIDTH 13.5 % (11.7-14.4)
[2022-02-03 09:34] LABS: ALBUMIN 3.8 g/dL (3.5-5.0); ALBUMIN/GLOBULIN RATIO 1.2 (0.8-2.0); ANION GAP 16.1 mmol/L (8-16); CREATININE, SERUM 1.57 mg/dL (0.72-1.25); POTASSIUM 3.1 mmol/L (3.5-5.1)
[2022-02-03 09:40] LABS: CALCIUM 14.3 mg/dL (8.4-10.2)
[2022-02-03] MEDS ORDERED: ARICEPT5 MG PO (10:20)
[2022-02-03] MEDS ORDERED: NAMENDA10 MG PO (10:20)
[2022-02-03] MEDS ORDERED: LATANOPROST2.5 ML OP (10:20)
[2022-02-03 11:45] VITALS: BP 147/86
[2022-02-03 15:33] VITALS: BP 122/76
[2022-02-03] MEDS ORDERED: POTASSIUM CHLORIDE 20 MEQ TAB CR PO NR (17:00)
[2022-02-03 18:42] LABS: CREATININE, SERUM 1.4 mg/dL (0.72-1.25); MAGNESIUM 1.3 MG/DL (1.3-2.1); PHOSPHORUS 4.1 MG/DL (2.3-4.7)
[2022-02-03 18:51] LABS: CALCIUM 13.5 mg/dL (8.4-10.2)
[2022-02-03 20:00] VITALS: BP 123/74
[2022-02-03 20:11] VITALS: BP 123/74
[2022-02-04] VITALS (7 sets, daily range): BP systolic 108–137; BP diastolic 66–85
[2022-02-04 01:14] LABS: CLARITY,URINE CLOUDY (CLEAR); COLOR,URINE YELLOW (YELLOW); KETONES,URINE NEGATIVE (NEGATIVE); LEUKOCYTE ESTERASE ,URINE TRACE (NEGATIVE); NITRITE,URINE NEGATIVE (NEGATIVE); PROTEIN,URINE DIPSTICK NEGATIVE (NEGATIVE); URINE UROBILINOGEN 0.2 mg/dL (0.2 - 1)
[2022-02-04 01:24] LABS: AMORPHOUS SEDIMENT,URINE MANY (FEW); BACTERIA,URINE MANY /HPF; EPITHELIAL CELLS,URINE FEW /LPF
[2022-02-04] MEDS: SODIUM CHLORIDE 0.9% 1000ML 1,000 ML IV SCH ×2 (01:45→11:45)
[2022-02-04 02:30] LABS: CREATININE,URINE RANDOM 45.64 mg/dL (63-166); SODIUM,URINE 71 mmol/L
[2022-02-04 06:35] LABS: BASOPHILS % 0.2 % (0.0-1.0); EOSINOPHILS % 0.2 % (0.0-6.0); HEMATOCRIT 28.8 % (38.2-49.6); HEMOGLOBIN 9.8 g/dL (14.0-18.0); LYMPHOCYTES # (AUTO) 0.7 (1.0-3.2); LYMPHOCYTES % 17.5 % (18.0-39.1); MEAN CORPUSCULAR HEMOGLOBIN 32.6 pg (28-32); MEAN CORPUSCULAR VOLUME 95.7 fL (81-99); MONOCYTES # (AUTO) 0.6 (0.2-0.8); MONOCYTES % 13.9 % (4.4-11.3); NEUTROPHILS # (AUTO) 2.9 (2.1-6.9); NEUTROPHILS % 67.7 % (38.7-80.0); PLATELET COUNT 252 x10e3/uL (140-360); RED BLOOD COUNT 3.01 x10e6/uL (4.3-5.7); RED CELL DISTRIBUTION WIDTH 13.2 % (11.7-14.4)
[2022-02-04 06:49] LABS: ANION GAP 15.5 mmol/L (8-16); CALCIUM 12.1 mg/dL (8.4-10.2); CREATININE, SERUM 1.2 mg/dL (0.72-1.25); MAGNESIUM 1.3 MG/DL (1.3-2.1); PHOSPHORUS 3.4 MG/DL (2.3-4.7); POTASSIUM 3.5 mmol/L (3.5-5.1)
[2022-02-05] VITALS (8 sets, daily range): BP systolic 119–143; BP diastolic 72–87
[2022-02-05] MEDS: SODIUM CHLORIDE 0.9% 1000ML 1,000 ML IV SCH ×4 (03:43→20:45)
[2022-02-05 08:27] LABS: ANION GAP 13.5 mmol/L (8-16); CALCIUM 11.2 mg/dL (8.4-10.2); CREATININE, SERUM 1.16 mg/dL (0.72-1.25); POTASSIUM 3.5 mmol/L (3.5-5.1)
[2022-02-05 08:34] LABS: MAGNESIUM 1.1 MG/DL (1.3-2.1)
[2022-02-05] MEDS ORDERED: MAGNESIUM SULFATE 2GM/50ML 50 ML IV ONE ×2 (10:00→12:00)
[2022-02-05 12:20] LABS: HIV 1&2 AB SCREEN NON-REACTIVE (NONREACTIVE)
[2022-02-06] VITALS (7 sets, daily range): BP systolic 121–148; BP diastolic 74–88
[2022-02-06] MEDS: SODIUM CHLORIDE 0.9% 1000ML 1,000 ML IV SCH ×2 (05:42→19:22)
[2022-02-06 06:00] LABS: BASOPHILS % 0.2 % (0.0-1.0); EOSINOPHILS % 0.2 % (0.0-6.0); HEMATOCRIT 27.1 % (38.2-49.6); HEMOGLOBIN 9.4 g/dL (14.0-18.0); LYMPHOCYTES # (AUTO) 0.7 (1.0-3.2); LYMPHOCYTES % 16.7 % (18.0-39.1); MEAN CORPUSCULAR HGB CONC 34.7 g/dL (31-35); MEAN CORPUSCULAR VOLUME 92.2 fL (81-99); MONOCYTES # (AUTO) 0.5 (0.2-0.8); MONOCYTES % 12.3 % (4.4-11.3); NEUTROPHILS # (AUTO) 2.9 (2.1-6.9); NEUTROPHILS % 70.1 % (38.7-80.0); PLATELET COUNT 269 x10e3/uL (140-360); RED BLOOD COUNT 2.94 x10e6/uL (4.3-5.7); RED CELL DISTRIBUTION WIDTH 13.2 % (11.7-14.4)
[2022-02-06 06:34] LABS: ALBUMIN 3.4 g/dL (3.5-5.0); ALBUMIN/GLOBULIN RATIO 1.5 (0.8-2.0); ANION GAP 13.6 mmol/L (8-16); CALCIUM 10.7 mg/dL (8.4-10.2); CREATININE, SERUM 1.13 mg/dL (0.72-1.25); POTASSIUM 3.6 mmol/L (3.5-5.1)
[2022-02-06 06:50] LABS: ANION GAP 14.6 mmol/L (8-16); CALCIUM 11.2 mg/dL (8.4-10.2); CREATININE, SERUM 1.11 mg/dL (0.72-1.25); MAGNESIUM 1.7 MG/DL (1.3-2.1); POTASSIUM 3.6 mmol/L (3.5-5.1)
[2022-02-06] MEDS ORDERED: MAGNESIUM SULF 1GRAM/DEXTROSE 100 ML IV ONE (09:00)
[2022-02-06] MEDS: TAMSULOSIN HCL 0.4 MG CAP PO SCH (11:07)
[2022-02-06] MEDS: MEMANTINE 10 MG TAB PO SCH ×2 (11:07→17:00)
[2022-02-06] MEDS: CHLORTHALIDONE 25 MG TAB PO SCH (11:07)
[2022-02-06] MEDS ORDERED: ONDANSETRON HCL 4 MG ORAL DISINTEGRATING TAB PO PRN (12:30)
[2022-02-06 13:12] LABS: ALPHA 2 GLOBULIN URINE PEP 15.3 % (.)
[2022-02-06] MEDS ORDERED: MAGNESIUM SULFATE 2GM/50ML 50 ML IV ONE (13:30)
[2022-02-06] MEDS ORDERED: SENNA-S TABLET PO PRN (17:45)
[2022-02-06] MEDS ORDERED: BISACODYL 10 MG SUPP PR PRN (17:45)
[2022-02-06] MEDS: POLYETHYLENE GLYCOL 3350 17 GM PACK PO SCH (19:28)
[2022-02-06] MEDS: DOCUSATE SODIUM 100 MG CAP PO SCH (19:29)
[2022-02-06] MEDS ORDERED: DONEPEZIL HCL 5 MG TAB PO SCH (21:00)
[2022-02-06] MEDS ORDERED: LATANOPROST(OPTH) 2.5 ML BTL OP SCH (21:00)
[2022-02-06] MEDS ORDERED: SIMVASTATIN 20 MG TAB PO SCH (21:00)
[2022-02-07 00:57] VITALS: BP 135/85
[2022-02-07] MEDS ORDERED: HYDRALAZINE HCL 20 MG/ML VIAL IV PRN (05:15)
[2022-02-07] MEDS: SODIUM CHLORIDE 0.9% 1000ML 1,000 ML IV SCH ×2 (05:27→18:24)
[2022-02-07 05:39] VITALS: BP 160/97
[2022-02-07 06:17] LABS: BASOPHILS % 0.3 % (0.0-1.0); EOSINOPHILS % 0.3 % (0.0-6.0); HEMATOCRIT 27.8 % (38.2-49.6); HEMOGLOBIN 9.3 g/dL (14.0-18.0); LYMPHOCYTES # (AUTO) 0.7 (1.0-3.2); MEAN CORPUSCULAR HGB CONC 33.5 g/dL (31-35); MEAN CORPUSCULAR VOLUME 95.5 fL (81-99); MONOCYTES # (AUTO) 0.5 (0.2-0.8); MONOCYTES % 11.3 % (4.4-11.3); NEUTROPHILS # (AUTO) 2.8 (2.1-6.9); NEUTROPHILS % 69.6 % (38.7-80.0); PLATELET COUNT 280 x10e3/uL (140-360); RED BLOOD COUNT 2.91 x10e6/uL (4.3-5.7); RED CELL DISTRIBUTION WIDTH 12.7 % (11.7-14.4)
[2022-02-07 06:21] LABS: CALCIUM 10.5 mg/dL (8.4-10.2); CREATININE, SERUM 1.01 mg/dL (0.72-1.25); MAGNESIUM 1.8 MG/DL (1.3-2.1); PHOSPHORUS 3.2 MG/DL (2.3-4.7)
[2022-02-07 08:30] VITALS: BP 160/97
[2022-02-07] MEDS: MEMANTINE 10 MG TAB PO SCH ×2 (08:43→16:16)
[2022-02-07] MEDS: TAMSULOSIN HCL 0.4 MG CAP PO SCH (08:43)
[2022-02-07] MEDS: CHLORTHALIDONE 25 MG TAB PO SCH (08:43)
[2022-02-07] MEDS: DOCUSATE SODIUM 100 MG CAP PO SCH ×2 (08:44→16:16)
[2022-02-07] MEDS: POLYETHYLENE GLYCOL 3350 17 GM PACK PO SCH (08:44)
[2022-02-07] MEDS ORDERED: AMLODIPINE BESYLATE 10 MG TAB PO SCH (09:00)
[2022-02-07 10:19] VITALS: BP 136/88
[2022-02-07 12:00] VITALS: BP 133/81
[2022-02-07] MEDS ORDERED: POTASSIUM CHLORIDE 20MEQ/100ML 100 ML IV SCH (12:00)
[2022-02-07] MEDS ORDERED: POTASSIUM CHLORIDE 10MEQ EA PO ONE (14:30)
[2022-02-07] MEDS ORDERED: POTASSIUM CHLORIDE 20 MEQ TAB CR PO ONE (18:26)
[2022-02-07 18:42] VITALS: BP 135/84
== END 2022-02-07 19:29 | disposition home or self-care (01) | DRG 683 ==
LOC: ER 17:21 → ERHOLD 19:32 → MED/SURG2 02-03 07:59 → OBSVTOIN 02-05 12:06
PROVIDERS: ADMIT Internal Medicine; ATTEND Internal Medicine
DX: N17.9 Acute kidney failure, unspecified (principal); E87.1 Hypo-osmolality and hyponatremia; E87.20 Acidosis, unspecified; I12.9 Hypertensive chronic kidney disease with stage 1 through stage 4 chronic kidney disease, or unspecified chronic kidney disease; N18.30 Chronic kidney disease, stage 3 unspecified; E86.0 Dehydration; D63.8 Anemia in other chronic diseases classified elsewhere; E87.6 Hypokalemia; E83.52 Hypercalcemia; E83.42 Hypomagnesemia; G89.29 Other chronic pain; N40.0 Benign prostatic hyperplasia without lower urinary tract symptoms; E11.22 Type 2 diabetes mellitus with diabetic chronic kidney disease; E78.5 Hyperlipidemia, unspecified
CPT/HCPCS: 36415; 76770; 80048; 80053; 81001; 82570; 83519; 83735; 83970; 84100; 84132; 84165; 84166; 84300; 85025; 87390; 93005; 96361; 99284; G0378; G0433; G0435; J3475; J3480; J7030